=== PATIENT | female | born 1990 | race Two or more races ===

== ENCOUNTER 2019-09-20 22:34 | Inpatient (IN) | payer MEDICAID, OTHER ==
[~2019-09-20] VITALS: Ht 154.9 cm; Wt 107.0 kg
[~2019-09-20 22:34] MED LIST: NO HOME MEDS
--- NOTE | 2019-09-20 23:00 | NUR ---
urine sent to lab
[2019-09-20 23:18] LABS: CLARITY,URINE CLEAR (Clear); COLOR,URINE YELLOW (Yellow); GLUCOSE, URINE 500 mg/dl (Neg); KETONES,URINE TRACE mg/dl (Neg); LEUKOCYTE ESTERASE ,URINE NEGATIVE (Neg); NITRITES, URINE NEGATIVE (Neg); OCCULT BLOOD,URINE TRACE-INTACT (Neg); PH,URINE 6.5 (4.8-8.0); PROTEIN,URINE NEGATIVE (Neg); URINE HCG NEGATIVE (NEG); UROBILINOGEN,URINE 0.2 E.U/dL (0.2-1.0)
[2019-09-20 23:20] LABS: UA COLLECTION TYPE CLN CATCH MIDSTREAM
[2019-09-20 23:24] LABS: BACTERIA,URINE NONE SEEN /HPF (Neg); RBC,URINE 0-2 /HPF (0-2); SQUAMOUS EPITHELIAL CELL,UR FEW /LPF (FEW); WBC,URINE NONE SEEN /HPF (0-4)
[2019-09-20 23:37] LABS: HEMOGLOBIN 11.2 g/dl (12.0-16.0); MEAN CORPUSCULAR HEMOGLOBIN 25.7 PG (27.0-31.0); MEAN PLATELET VOLUME 8.2 FL (7.4-10.4); RED BLOOD COUNT 4.36 X10'6 (4.20-5.60); RED CELL DISTRIBUTION WIDTH 16.8 % (11.5-14.5)
[2019-09-20 23:38] LABS: BASOPHILS # (AUTO) 0.1 X10'3 (0-0.2); BASOPHILS % (AUTO) 0.5 % (0-1); EOSINOPHILS # (AUTO) 0.1 X10'3 (0-0.9); EOSINOPHILS % (AUTO) 0.5 % (0-6); HEMATOCRIT 34.2 % (35.0-45.0); LYMPHOCYTES # (AUTO) 2.4 X10'3 (1.1-4.8); LYMPHOCYTES % (AUTO) 22.4 % (21-51); MEAN CORPUSCULAR HGB CONC 32.8 g/dL (33.0-36.5); MEAN CORPUSCULAR VOLUME 78.3 FL (78-98); MONOCYTES # (AUTO) 0.9 X10'3 (0-0.9); MONOCYTES % (AUTO) 8.5 % (2-12); NEUTROPHILS # (AUTO) 7.2 X10'3 (1.8-7.7); NEUTROPHILS % (AUTO) 68.1 % (42-75); PLATELET COUNT 269 X10'3 (140-440); WHITE BLOOD COUNT 10.6 X10'3 (4.5-11.0)
[2019-09-20] MEDS ORDERED: ondansetron/PF 4mg/2ml inj IV ONE (23:40)
[2019-09-20] MEDS ORDERED: normal saline 1000ML IV soln IVB ONE (23:40)
--- NOTE | 2019-09-20 23:45 | NUR ---
ultra sound at bedside
[2019-09-20 23:55] LABS: ALANINE AMINOTRANSFERASE 80 U/L (12-78); ALBUMIN 3.4 G/DL (3.4-5.0); ALBUMIN/GLOBULIN RATIO 0.7 (1.1-1.5); ALKALINE PHOSPHATASE 100 IU/L (46-116); AMYLASE 24 U/L (25-115); ANION GAP 10 (8-16); ASPARTATE AMINO TRANSFERASE 37 U/L (10-37); BILIRUBIN,TOTAL 0.2 MG/DL (0.1-1.0); BLOOD UREA NITROGEN 12 MG/DL (7-18); CALCIUM 8.8 MG/DL (8.5-10.1); CHLORIDE 104 MMOL/L (99-107); CREATININE 0.86 MG/DL (0.40-0.90); GLUCOSE 321 MG/DL (70-104); LIPASE 106 U/L (73-393); POTASSIUM 3.7 MMOL/L (3.5-5.1); SODIUM 137 MMOL/L (135-145); TOTAL CARBON DIOXIDE 23.3 MMOL/L (24-32); TOTAL PROTEIN 8.3 G/DL (6.4-8.2); eGFR 77 ML/MIN
[2019-09-21] VITALS (23 sets, daily range): BP systolic 114–165; BP diastolic 54–105
[2019-09-21] MEDS: morphine 4 MG/ML inj SYRINge IV PRN ×6 (00:13→09:59)
[2019-09-21] MEDS ORDERED: ketorolac trometh. 30mg/ml inj. IV ONE ×2 (00:40→13:40)
[2019-09-21] MEDS ORDERED: ALOG25TA2 PO (01:32)
[2019-09-21] MEDS ORDERED: METF-438 PO (01:32)
[2019-09-21] MEDS ORDERED: magnesium Cl slow-release 64mg tablet PO PRN (02:50)
[2019-09-21] MEDS ORDERED: potassium Cl 20 mEq SR tablet PO PRN ×2 (02:50)
[2019-09-21] MEDS ORDERED: morphine 2 MG/ML inj. syringe IV PRN ×2 (02:50→13:40)
[2019-09-21] MEDS ORDERED: potassium CL 10mEq/100ml bag 100 ML IV PRN ×2 (02:50)
[2019-09-21] MEDS ORDERED: magnesium 2GM in 50ml NS 50 ML IV PRN (02:50)
[2019-09-21] MEDS ORDERED: ondansetron/PF 4mg/2ml inj IV PRN ×2 (02:50→13:40)
[2019-09-21] MEDS ORDERED: magnesium 4gm in 100ml NS 100 ML IV PRN (02:50)
[2019-09-21] MEDS ORDERED: acetaminophen 325mg tablet PO PRN (02:50)
--- NOTE | 2019-09-21 03:02 | NUR ---
Received report from Sweetie COOK in the ED. Patient arrived [id number] in a wheelchair, saline locked, vss, a/o, room air, no signs of distress will continue to monitor
[2019-09-21] MEDS: normal saline 1000ml 1,000 ML IV SCH ×3 (03:12→17:37)
--- NOTE | 2019-09-21 06:33 | NUR ---
Problems reprioritized. Patient report given, questions answered & plan of care reviewed with Julia COOK.
--- NOTE | 2019-09-21 06:40 | NUR ---
Patient in room HEIDE 356. I have received report from Erika COOK and had the opportunity to ask questions and assume patient care.
[2019-09-21] MEDS: K and/or MAG REPLACEMENT MC SCH ×2 (08:00→21:27)
[2019-09-21] MEDS ORDERED: metroNIDAZOLE-Flagyl 500mg/NS 100 ML IV SCH ×2 (09:20→11:26)
[2019-09-21] MEDS ORDERED: levoFLOXACIN-Levaquin 750MG/D5 150 ML IV SCH (09:20)
[2019-09-21] MEDS ORDERED: dextrose 50%-water 50ml dispensing syringe IV PRN ×2 (09:20)
[2019-09-21] MEDS ORDERED: dextrose ORAL solution 15 GM/59 ML bottle PO PRN ×2 (09:20)
[2019-09-21] MEDS ORDERED: MESSAGE TO PHARMACY PO ONE (09:20)
[2019-09-21] MEDS ORDERED: glucagon, human recombinant 1mg kit SUBCUT PRN (09:20)
--- NOTE | 2019-09-21 10:15 | NUR ---
patient seen by Dr Welsh is for surgery this afternoon.
[2019-09-21 10:22] LABS: HEMOGLOBIN A1C 9.5 % (4.5-6.2)
[2019-09-21] MEDS: levoFLOXACIN-Levaquin 750MG/D5 150 ML IV SCH (12:14)
[2019-09-21] MEDS ORDERED: BUPIVAcaine/PF 2.5 mg/ml (0.25%) 30ml vial ONE ×2 (13:34→13:54)
[2019-09-21] MEDS ORDERED: ringers solution, lacted 1,000 ML IV SCH (13:38)
[2019-09-21] MEDS ORDERED: proCHLORperazine 10 MG/2 ml inj IV PRN (13:40)
[2019-09-21] MEDS ORDERED: acetaminophen 1,000mg/100ml IV 100 ML IV PRN (13:40)
[2019-09-21] MEDS ORDERED: morphine 4 MG/ML inj SYRINge IV PRN (13:40)
[2019-09-21] MEDS ORDERED: meperidine/PF 25mg/ml syringe IV PRN ×3 (13:40)
[2019-09-21] MEDS ORDERED: sevoflurane 250ml liquid IH ONE (13:52)
[2019-09-21] MEDS ORDERED: neostigmine methylsulfate 1 MG/ML 10ml vial ONE (13:52)
[2019-09-21] MEDS ORDERED: glycopyrrolate 0.2mg/ml inj ONE (13:52)
[2019-09-21] MEDS ORDERED: ceFAZolin 1000mg inj ONE (13:54)
[2019-09-21] MEDS ORDERED: midazolam 2 mg/2 ml injection ONE (14:01)
[2019-09-21] MEDS ORDERED: fentaNYL /PF 50mcg/ml 5ml ampule ONE (14:02)
[2019-09-21] MEDS ORDERED: famotidine/PF 10 mg/ml inj IV ONE (14:12)
[2019-09-21] MEDS ORDERED: ondansetron/PF 4mg/2ml inj ONE (14:17)
[2019-09-21] MEDS ORDERED: dexamethasone sod phosphate 4mg/ml inj. ONE (14:17)
[2019-09-21] MEDS ORDERED: rocuronium 10mg/ml inj IV ONE (14:17)
[2019-09-21] MEDS ORDERED: propofol inj 20 ML IV ONE (14:17)
[2019-09-21] MEDS ORDERED: LIDOcaine 2% (20mg/ml) 5ml vial ONE (14:17)
--- NOTE | 2019-09-21 14:31 | NUR ---
1330 patient went for surgery.
[2019-09-21] MEDS ORDERED: morphine 10mg/ml inj. ONE (15:27)
--- NOTE | 2019-09-21 15:33 | NUR ---
RECEIVED FROM OR VIA BED ACCOMPANIED BY ANESTHESIOLOGIST DR HUTCHINS, REPORT GIVEN. PT DROWSY BUT AWAKENS WITH NO COMPLAINT OF PAIN AT THIS TIME. 20 GAUGE PIV R FA PATENT AND RUNNING LR AT 100 ML/HR. LG BANDAID X3 TO ABD CDI. ABD SOFT, VSS, GOOD CAP REFILL, PERIPHERAL PULSES PRESENT, SCDS ON, RESTING COMFORTABLY
--- NOTE | 2019-09-21 16:58 | NUR ---
Patient in room HEIDE 356. I have received report from NEELA COOK and had the opportunity to ask questions and assume patient care. Patient alert and orientated no c/o pain. VSS
--- NOTE | 2019-09-21 17:03 | NUR ---
TRANSFERRED VIA BED ACCOMPANIED BY MYSELF, REPORT GIVEN. PT AWAKE AND ALERT WITH NO COMPLAINT OF PAIN AT THIS TIME. 20 GAUGE PIV R FA PATENT AND RUNNING LR AT 100 ML/HR. LG BANDAID X3 TO ABD CDI. ABD SOFT, VSS, GOOD CAP REFILL, PERIPHERAL PULSES PRESENT, SCDS ON, RESTING COMFORTABLY, LEFT IN CARE OF ROSIE COOK
--- NOTE | 2019-09-21 17:09 | NUR ---
Patient bandaide sites x3 CDI. will monitor
--- NOTE | 2019-09-21 17:15 | NUR ---
Patient in room HEIDE 356. I have received report from Cassie COOK and had the opportunity to ask questions and assume patient care.
[2019-09-21] MEDS ORDERED: morphine 5 MG/ML injection IV PRN (17:20)
--- NOTE | 2019-09-21 17:25 | NUR ---
patient c/o pain 10/16. Dr Welsh paged with regards this orders received see emar.
[2019-09-21] MEDS: HYDROcodone/acetaminophen 10/325mg tab PO PRN (17:37)
--- NOTE | 2019-09-21 18:00 | NUR ---
Patient in room [facility] 356. I have received report from Julia COOK and had the opportunity to ask questions and assume patient care.
--- NOTE | 2019-09-21 18:51 | NUR ---
Carb count diet ordered for patient per Dr Welsh, will start on clears to see if patient tolerates this and advance as tolerates. Patient up in room. medicated with [place] with effect. report given to Erika COOK
[2019-09-21] MEDS: metroNIDAZOLE-Flagyl 500mg/NS 100 ML IV SCH (19:35)
[2019-09-21] MEDS: insulin Lispro (HumaLOG) vial - multi-dose SQ SCH ×2 (19:53→21:24)
[2019-09-21] MEDS ORDERED: insulin glargine (Lantus) pen - multi-dose SQ SCH (21:00)
--- NOTE | 2019-09-21 21:30 | NUR ---
c/o mild itching, back chest, no rash or redness. pt states started after morphin this am. will monitor. states itching is mild. no Benedryl ordered, will notify md if continues. Addendum: 09/21/19 at 2132 by Nicolás Doyle RN Amended: Links added.
--- NOTE | 2019-09-21 22:29 | NUR ---
Patient in room HEIDE 356. I have received report from Erika COOK and had the opportunity to ask questions and assume patient care.
--- NOTE | 2019-09-21 22:29 | NUR ---
Problems reprioritized. Patient report given, questions answered & plan of care reviewed with Dimple COOK.
[2019-09-22] VITALS: BP 122/82
[2019-09-22] MEDS: HYDROcodone/acetaminophen 10/325mg tab PO PRN ×3 (00:06→12:23)
[2019-09-22] MEDS: normal saline 1000ml 1,000 ML IV SCH (03:55)
[2019-09-22 04:00] VITALS: BP 109/76
[2019-09-22] MEDS: metroNIDAZOLE-Flagyl 500mg/NS 100 ML IV SCH ×2 (04:45→11:13)
[2019-09-22 05:06] LABS: BASOPHILS % (AUTO) 0.1 % (0-1); EOSINOPHILS % (AUTO) 0 % (0-6); HEMATOCRIT 32.6 % (35.0-45.0); HEMOGLOBIN 10.6 g/dl (12.0-16.0); LYMPHOCYTES # (AUTO) 1.3 X10'3 (1.1-4.8); LYMPHOCYTES % (AUTO) 13.1 % (21-51); MEAN CORPUSCULAR HEMOGLOBIN 25.6 PG (27.0-31.0); MEAN CORPUSCULAR HGB CONC 32.5 g/dL (33.0-36.5); MEAN CORPUSCULAR VOLUME 78.9 FL (78-98); MEAN PLATELET VOLUME 8.5 FL (7.4-10.4); MONOCYTES # (AUTO) 0.6 X10'3 (0-0.9); MONOCYTES % (AUTO) 5.8 % (2-12); NEUTROPHILS # (AUTO) 8.3 X10'3 (1.8-7.7); PLATELET COUNT 270 X10'3 (140-440); RED BLOOD COUNT 4.13 X10'6 (4.20-5.60); WHITE BLOOD COUNT 10.2 X10'3 (4.5-11.0)
[2019-09-22 05:22] LABS: ALBUMIN 2.9 G/DL (3.4-5.0); ANION GAP 9 (8-16); BLOOD UREA NITROGEN 6 MG/DL (7-18); BUN/CREATININE RATIO 9.2 (6.6-38.0); CALCIUM 8.8 MG/DL (8.5-10.1); CHLORIDE 103 MMOL/L (99-107); CREATININE 0.65 MG/DL (0.40-0.90); GLUCOSE 254 MG/DL (70-104); MAGNESIUM 1.8 MG/DL (1.5-2.4); POTASSIUM 3.9 MMOL/L (3.5-5.1); SODIUM 136 MMOL/L (135-145); TOTAL CARBON DIOXIDE 24.3 MMOL/L (24-32); eGFR > 90 ML/MIN
--- NOTE | 2019-09-22 06:34 | NUR ---
Patient in room HEIDE 340. I have received report from Aimee COOK and had the opportunity to ask questions and assume patient care.
[2019-09-22 07:00] VITALS: BP 137/87
[2019-09-22] MEDS: K and/or MAG REPLACEMENT MC SCH (08:00)
[2019-09-22] MEDS: levoFLOXACIN-Levaquin 750MG/D5 150 ML IV SCH (08:20)
[2019-09-22] MEDS: insulin Lispro (HumaLOG) vial - multi-dose SQ SCH (08:26)
--- NOTE | 2019-09-22 09:19 | NUR ---
Dr. Alfonso burch MD instructed pt she is ready to go home today, that she may shower, and is ok to resume her job in 2 weeks. Pt will f/u w/ Dr. Hamilton' office for disability/work forms.
--- NOTE | 2019-09-22 09:50 | NUR ---
PAGER ID: [phone] MESSAGE: [id number] Re: [place] [id number] Charge wants me to notify you that Dr Hamilton is ok for discharge when you see patient
[2019-09-22] MEDS ORDERED: HYDR-4383 PO (10:33)
[2019-09-22 11:00] VITALS: BP 147/76
--- NOTE | 2019-09-22 12:30 | NUR ---
Patients discharge instructions reviewed with patient and patient verbalized instruction. Patients IV dc'd cannula intact. Patient ambulated with PRASHANTH Pollock to friends car who is picking patient up due to the fact patient has taken [place] here. Patient states she will have picking supervisor her car later. Patient verbalized understanding not to take [place] and drive. Patient states she has all her belongings.
--- NOTE | 2019-09-22 13:48 | NUR ---
DM Consult: A1C 9.5. Pt seen by MARI for written/verbal DM ed w/ RD contact information provided. Pt declined verbal review at this time. Pt stated 9 months prior stopped taking medications r/t not f/u at PCP but since restarting medications per Rx A1C down from 11 6 months ago to 9.5 this admit. Addendum: 09/22/19 at [address] Amended: Links added.
== END 2019-09-22 12:56 | disposition home or self-care (01) | DRG 418 ==
LOC: ER 22:35 → SUR 3N 09-21 02:46 → CMPBEDREQ 09-21 05:20
PROVIDERS: ADMIT Internal Medicine; ATTEND Family Medicine
PROC: 0FT44ZZ Resection of Gallbladder, Percutaneous Endoscopic Approach (ICD-10-PCS; principal; 2019-09-21 13:52)
DX: K80.66 Calculus of gallbladder and bile duct with acute and chronic cholecystitis without obstruction (principal); Z68.41 Body mass index [BMI] 40.0-44.9, adult; E11.9 Type 2 diabetes mellitus without complications; E66.01 Morbid (severe) obesity due to excess calories; Z79.84 Long term (current) use of oral hypoglycemic drugs
CPT/HCPCS: 96361; 96374; 96375; 99285; Z7506; Z7508; 36415; 76700; 80048; 80053; 81001; 81025; 82150; 82948; 83036; 83690; 83735; 85025; 87081; 93005; A4215; A4618; A7000; G0378; J0690; J1100; J1815; J1885; J1956; J2001; J2250; J2270; J2405; J2704; J2710; J3010; J3490; J7030; J7120